=== PATIENT | female | born 2000 | race Asian ===

== ENCOUNTER 2022-09-06 01:41 | Emergency (ER) | payer OTHER, SELFPAY ==
[2022-09-06 01:48] VITALS: BP 128/84; PULSE 89; RESP 18; TEMP 36.7; O2SAT 99; BMI 26.5
--- NOTE | 2022-09-06 02:02 | ED.ABDPAIN ---
HPI - Abdominal Pain General Time Seen by Provider: 02:02 Date Seen: 09/06/22 Chief Complaint: Abdominal Pain Stated Complaint: severe stomach pain Time Seen by Provider: 09/06/22 01:42 History of Present Illness HPI narrative: Patient is a very pleasant 22-year-old female with recent diagnosis of UTI incompletely treated who comes to the emergency room for evaluation of a stomach pain. Patient notes the onset of abdominal pain and points to the epigastrium that started earlier today. It has been on and off and associated with nausea. The pain does radiate to the her back and her ribs mainly on the right. She does note that she has had this in the past but has never been this bad. She does have a gallbladder but has had no known problems with that. Patient denies any diarrhea fever or chills but states when the pain gets bad she is quite shaky. She has not been dealing with any constipation. Patient notes that she was diagnosed with a UTI on September 01 and had 3 doses of an unknown antibiotic. She works down here in [place] for extended periods and had for gotten her meds at home in [place]. She thinks that the medications started within an. Patient has not noticed abdominal distension but feels that her epigastrium is quite hard. Related Data Home Medications Medication Instructions Recorded Confirmed etonogestrel 68 mg subdermal 68 mg subdermal DIRECTED 09/06/22 09/06/22 implant (Nexplanon) Allergies Allergy/AdvReac Type Severity Reaction Status Date / Time No Known Drug Allergies Allergy Verified 09/06/22 01:52 Review of Systems Status of ROS Reports: 10 or more systems reviewed and unremarkable except as noted in History and below Const Denies: fever, chills or fatigue ENMT Denies: throat pain, neck pain or difficulty swallowing Cardio Denies: chest pain, palpitations, swelling of feet/ankles or shortness of breath with exertion Resp Denies: shortness of breath or cough GI Reports: abdominal pain and nausea; Denies: vomiting, diarrhea, constipation, difficulty swallowing or blood in stool Denies: painful urination, urinary frequency or urinary urgency Musculo Reports: back pain; Denies: neck pain Integ/Breast Denies: rash Neuro Denies: headache Endo Denies: fatigue PFSH [facility] Medical History No significant past medical history Surgical History No significant past surgical history Social History Smoking Status: Never smoker Do you use any of these nicotine containing products: None Second hand tobacco smoke exposure: No How often do you have a drink containing alcohol: never How often do you have six or more drinks on one occasion: Never AUDIT-C Alcohol total score: 0 Non-prescribed substance use: denies use Exam Narrative: Exam Narrative: Patient is alert and oriented. Very pleasant well-spoken woman. No acute distress. Eyes are clear. Neck is supple without lymphadenopathy Heart with regular rate and rhythm. Lungs are clear bilaterally. Abdomen is soft but she does have tenderness in the epigastrium and to a lesser extent the right upper quadrant. No Luo sign at this time. No CVA tenderness with percussion. Lower extremities without edema. Moving all extremities. Const: Vital Signs, click to edit/add: Vital Signs - 24 hr 09/06/22 01:48 09/06/22 02:37 09/06/22 03:25 Temperature 98.0 F 98.0 F 98.0 F Pulse Rate [Right Pulse Oximeter] 89 Respiratory Rate 18 Blood Pressure [Ri ght Upper Arm] 128/84 Pulse Oximetry 99 Oxygen Delivery Me thod Room Air 09/06/22 03:29 Temperature 98.0 F Pulse Rate [Right Pulse Oximeter] 84 Respiratory Rate 18 Blood Pressure [Ri ght Upper Arm] 115/79 Pulse Oximetry 99 Oxygen Delivery Me thod Room Air Documenting provider has reviewed patient's vital signs: yes Course Course Hospital Course: At this time differential diagnosis includes but is not limited to colitis, gastritis, biliary colic, pancreatitis, pyelonephritis, constipation. Patient is agreeable to IV with blood draw to include a CBC, comprehensive panel, CRP, lipase, urinalysis. Reevaluation(s) Reevaluation #1: Patient does have elevation of her white count. She is somewhat improved after Toradol 15 mg and Zofran 4 mg. warp scouring vat tender in the right upper quadrant. Proceeding with a CT as she is suspicious for biliary colic. Reevaluation #2: Patient noted that she is much improved at this point. She was able to sleep. Results of CT that show no acute findings related with her. Vital Signs Vital signs: Initial Vital Signs Temperature 98.0 F 09/06/22 01:48 Temperature Source Temporal Artery Scan 09/06/22 01:48 Pulse Rate 89 09/06/22 01:48 Respiratory Rate 18 09/06/22 01:48 Blood Pressure 128/84 09/06/22 01:48 Blood Pressure Mean 98 09/06/22 01:48 Blood Pressure Position Sitting 09/06/22 01:48 Pulse Oximetry 99 09/06/22 01:48 Oxygen Delivery Method 09/06/22 01:48 Vital Signs Temperature 98.0 F 09/06/22 01:48 Pulse Rate 89 09/06/22 01:48 Respiratory Rate 18 09/06/22 01:48 Blood Pressure 128/84 09/06/22 01:48 Pulse Oximetry 99 09/06/22 01:48 Oxygen Delivery Method 09/06/22 01:48 Temperature 98.0 F 09/06/22 03:29 Pulse Rate 84 09/06/22 03:29 Respiratory Rate 18 09/06/22 03:29 Blood Pressure 115/79 09/06/22 03:29 Pulse Oximetry 99 09/06/22 03:29 Oxygen Delivery Method 09/06/22 03:29 MDM - Abdominal Pain MDM Narrative Medical decision making narrative: 1. Abdominal pain-at this time CT is without evidence of acute findings. Does show somewhat distended stomach but otherwise no acute findings per Radiology. Patient will be discharged home she is feeling much improved. Recommend ibuprofen or Tylenol as needed for discomfort. Recommend pushing fluids and bland foods at this time. Follow-up with primary MD if not improving for potential ultrasound or HIDA scan. 2. UTI-restart antibiotic. No signs of pyelonephritis or sepsis. 2. Disposition-home. Seek medical attention for worsening symptoms. Lab Data Attestation: I reviewed the patient's lab results. Labs: Lab Results 09/06/22 09/06/22 09/06/22 Range/Units 02:00 02:30 02:30 WBC 11.54 H (4.50-11.00) K/uL RBC 5.03 (4.00-5.20) m/uL Hgb 14.4 (12.0-16.0) gm/dL Hct 42.4 (33.0-51.0) % MCV 84 (80-100) fL MCH 29 (26-34) pg MCHC 34 (32-36) gm/dL RDW Coeff of Noe 13.0 (11.5-15.5) % Plt Count 312 (140-440) K/uL Neut % (Auto) 56.6 (42.0-72.0) % Lymph % (Auto) 36.0 (20-44) % [place] % (Auto) 5.4 (0.0-11.0) % Eos % (Auto) 1.6 (0.0-7.0) % Baso % (Auto) 0.3 (0.0-3.0) % Neut # (Auto) 6.50 (1.7-7.0) K/uL Lymph # (Auto) 4.20 H (0.90-2.90) K/uL [place] # (Auto) 0.60 (0.00-0.90) K/UL Eos # (Auto) 0.20 (0.00-0.50) K/uL Baso # (Auto) 0.00 (0.00-0.30) K/uL Sodium 143 (135-149) mmol/L Potassium 3.5 L (3.6-5.1) mmol/L Chloride 106 (96-114) mmol/L Carbon Dioxide 27 (20-32) mmol/L BUN 21 (5-24) mg/dL Creatinine 0.7 (0.5-1.5) mg/dL Estimated Creat Clear 98.86 Estimated GFR 125 ml/min Glucose 106 (60-115) mg/dL Calcium 9.2 (8.4-10.6) mg/dL Total Bilirubin 0.3 (0.1-1.5) mg/dL Direct Bilirubin 0.2 (0.0-0.5) mg/dL AST 26 (12-35) U/L ALT 24 (4-35) U/L Alkaline Phosphatase 65 (40-150) U/L C-Reactive Protein 0.6 (0.5-1.0) mg/dL Total Protein 9.0 H (6.0-8.3) g/dL Albumin 4.7 (3.3-5.0) g/dL Lipase 128 (23-300) U/L Urine Color Yellow (Yellow) Urine Appearance Slightly Cloudy A (Clear) Urine pH 7.0 (5.0-8.5) Ur Specific [place] 1.020 (1.000-1.030) Urine Protein Negative (Negative) Urine Glucose (UA) Negative (Negative) Urine Ketones Negative (Negative) Urine Blood Negative (Negative) Urine Nitrite Negative (Negative) Urine Bilirubin Negative (Negative) Urine Urobilinogen 0.2 (0.2-1.0) Ur Leukocyte Esterase Trace A (Negative) Urine RBC 0-2 (0-2) Urine WBC 0-2 (0-5) Ur Squamous Epith Cells Few (None-Few) Amorphous Sediment Moderate A (None) Urine Bacteria Moderate A (None) Imaging Data CT scan - abdomen: Attestation: I have reviewed the pertinent imaging results. Radiologist's impression: LUNG BASES: The lung bases as visualized appear normal.The heart size is normal at the lung bases. LIVER/BILIARY SYSTEM:The liver is normal in size and configuration. There is no focal mass and there is no intra- or extra hepatic biliary ductal dilatation.The gallbladder is contracted but otherwise unremarkable. ADRENALS: Normal KIDNEYS, URETERS and BLADDER:The kidneys appear normal. No visible mass, calculus or hydronephrosis. The ureters and bladder as visualized appear normal. SPLEEN:Normal appearance. PANCREAS: Appears normal. RETROPERITONEUM and MESENTERY: There is no mass, adenopathy or aortic aneurysm. GASTROINTESTINAL SYSTEM: There is no evidence of diverticulitis, colitis, mechanical obstruction, or appendicitis. The small bowel as visualized appears normal.The stomach is distended with food but there is no evidence of gastric outlet obstruction or other specific visible cause for epigastric pain PELVIS: No mass, adenopathy or free fluid. OSSEOUS STRUCTURES and ABDOMINAL WALL: There is an age-appropriate appearance of the osseous structures.No significant abdominal wall defect. OTHER: No free fluid or free air. IMPRESSION: No specific visible cause for epigastric pain. Discharge Plan Discharge Clinical Impression: UTI (urinary tract infection), Abdominal pain Patient Disposition: Home, Self-Care Condition: Improved Additional Instructions: I suggest pushing fluids and eating bland foods. Ibuprofen or Tylenol may be used for pain. Follow-up with your primary MD for recheck if you have ongoing pain. Your doctor may order an ultrasound or another test called HIDA scan to check for gallbladder function. Restart your antibiotic as soon as possible. Seek medical attention or return for worsening symptoms. Prescriptions: No Action Nexplanon 68 mg implant 68 mg subdermal DIRECTED Follow Up/Referrals: Provider,Not a Local [Primary Care Provider] - Stand Alone Forms: [employer] Info Instructions
[2022-09-06 02:07] LABS: Appearance Urine Slightly Cloudy (Clear); Bilirubin Urine Negative (Negative); Blood Urine Negative (Negative); Color Urine Yellow (Yellow); Glucose Urine Negative (Negative); Ketones Urine Negative (Negative); Leukocyte Esterase Urine Trace (Negative); Nitrite Urine Negative (Negative); Protein Urine Negative (Negative); Urobilinogen Urine 0.2 (0.2-1.0)
[2022-09-06 02:24] LABS: Amorphous Sediment Urine Moderate; Bacteria Urine Moderate; RBC Urine 0-2 (0-2); Squamous Epithelial Cell Urine Few (None-Few); WBC Urine 0-2 (0-5)
[2022-09-06] MEDS: 0.9 % SODIUM CHLORIDE 1000 ml 1,000 ML IV (02:35)
[2022-09-06] MEDS: ONDANSETRON 2 MG/ML inj 4 MG IVP (02:35)
[2022-09-06 02:36] LABS: Basophils Percent Auto 0.3 % (0.0-3.0); Eosinophils Percent Auto 1.6 % (0.0-7.0); Hematocrit 42.4 % (33.0-51.0); Hemoglobin* 14.4 gm/dL (12.0-16.0); Immature Granulocytes Pct Auto 0.1 %; Mean Corpuscular HGB Conc 34 gm/dL (32-36); Mean Corpuscular Hemoglobin 29 pg (26-34); Mean Corpuscular Volume 84 fL (80-100); Monocytes Percent Auto 5.4 % (0.0-11.0); Neutrophils Percent Auto 56.6 % (42.0-72.0); Platelet Count* 312 K/uL (140-440); Red Blood Count 5.03 m/uL (4.00-5.20); White Blood Count* 11.54 K/uL (4.50-11.00)
[2022-09-06 02:37] VITALS: TEMP 36.7
[2022-09-06] MEDS: KETOROLAC 15 MG/ML inj IVP (02:37)
[2022-09-06 02:39] LABS: Slide Review Reflex No
[2022-09-06 02:48] LABS: Chloride* 106 mmol/L (96-114)
[2022-09-06 02:49] LABS: Albumin* 4.7 g/dL (3.3-5.0); Sodium* 143 mmol/L (135-149)
[2022-09-06 02:50] LABS: Potassium* 3.5 mmol/L (3.6-5.1)
[2022-09-06 02:51] LABS: Creatinine* 0.7 mg/dL (0.5-1.5); Est. Creatinine Clearance* 98.86; Estimated Glomerular Filt Rate 125 ml/min
[2022-09-06 02:52] LABS: Alkaline Phosphatase* 65 U/L (40-150); Aspartate Amino Transferase* 26 U/L (12-35); Bilirubin Direct* 0.2 mg/dL (0.0-0.5); Bilirubin Total* 0.3 mg/dL (0.1-1.5); Carbon Dioxide* 27 mmol/L (20-32)
[2022-09-06 02:53] LABS: Alanine Aminotransferase* 24 U/L (4-35); Blood Urea Nitrogen* 21 mg/dL (5-24); Calcium* 9.2 mg/dL (8.4-10.6); Glucose* 106 mg/dL (60-115); Lipase* 128 U/L (23-300)
[2022-09-06 02:55] LABS: C Reactive Protein* 0.6 mg/dL (0.5-1.0)
--- NOTE | 2022-09-06 03:18 | CRLHL7_ITS ---
For Patients: As a result of the Century Cures Act, medical imaging exams and procedure reports are released immediately into your electronic medical record. You may view this report before your referring provider. If you have questions, please contact your health care provider. INDICATION: Epigastric pain COMPARISON: None TECHNIQUE: CT examination of the abdomen and pelvis was performed following the uneventful intravenous administration of 71 cc of Isovue 370. Thin section axial images were obtained from the lung bases through the pubic symphysis. Oral contrast was not administered. Please note that all CT scans at this facility use dose modulation, iterative reconstruction, and/or weight-based dosing when appropriate to reduce radiation dose to as low as reasonably achievable. FINDINGS: LUNG BASES: The lung bases as visualized appear normal.The heart size is normal at the lung bases. LIVER/BILIARY SYSTEM:The liver is normal in size and configuration. There is no focal mass and there is no intra- or extra hepatic biliary ductal dilatation.The gallbladder is contracted but otherwise unremarkable. ADRENALS: Normal KIDNEYS, URETERS and BLADDER:The kidneys appear normal. No visible mass, calculus or hydronephrosis. The ureters and bladder as visualized appear normal. SPLEEN:Normal appearance. PANCREAS: Appears normal. RETROPERITONEUM and MESENTERY: There is no mass, adenopathy or aortic aneurysm. GASTROINTESTINAL SYSTEM: There is no evidence of diverticulitis, colitis, mechanical obstruction, or appendicitis. The small bowel as visualized appears normal.The stomach is distended with food but there is no evidence of gastric outlet obstruction or other specific visible cause for epigastric pain PELVIS: No mass, adenopathy or free fluid. OSSEOUS STRUCTURES and ABDOMINAL WALL: There is an age-appropriate appearance of the osseous structures.No significant abdominal wall defect. OTHER: No free fluid or free air. IMPRESSION: No specific visible cause for epigastric pain. Please note that all CT scans at this facility use dose modulation, iterative reconstruction, and/or weight-based dosing when appropriate to reduce radiation dose to as low as reasonably achievable. Dictated by Murtaza Calderon MD @ 09/06/2022 4:15:57 AM (Electronically Signed)
[2022-09-06 03:25] VITALS: TEMP 36.7
[2022-09-06 03:29] VITALS: BP 115/79; PULSE 84; RESP 18; TEMP 36.7; O2SAT 99
[2022-09-06 04:37] VITALS: BP 115/79; PULSE 84; RESP 18; TEMP 36.7
== END 2022-09-06 04:38 | disposition home or self-care (01) ==
PROVIDERS: Emergency Provider Family Medicine
DX: N39.0 Urinary tract infection, site not specified (principal); R10.9 Unspecified abdominal pain
CPT/HCPCS: 36415; 74177; 80053; 81001; 81003; 81015; 82248; 83690; 85025; 86140; 87086; 96374; 96375; 99284; 99285; J1885; J2405; J7030; Q9967